=== PATIENT | female | born 2000 | race Caucasian/White ===

== ENCOUNTER 2024-11-02 18:04 | Emergency (ER) | payer MEDICAID, OTHER ==
[~2024-11-02] VITALS: Ht 177.8 cm; Wt 68.0 kg
[2024-11-02] MEDS ORDERED: PROCHLORPERAZINE EDISYLATE 10 MG/2 ML VIAL ONE (20:10)
[2024-11-02] MEDS ORDERED: ACETAMINOPHEN ES 500 MG TABLET ONE (20:10)
[2024-11-02] MEDS ORDERED: diphenhydrAMINE HCL 50 MG/ML VIAL ONE (20:10)
[2024-11-02] MEDS: IV NS 0.9% 1,000 ML BAG IV ONE (20:20)
[2024-11-02] MEDS: diphenhydrAMINE HCL 50 MG/ML VIAL IV ONE (20:21)
[2024-11-02] MEDS: ACETAMINOPHEN ES 500 MG TABLET PO ONE (20:21)
[2024-11-02] MEDS: PROCHLORPERAZINE EDISYLATE 10 MG/2 ML VIAL IM/IV ONE (20:23)
[2024-11-02] MEDS ORDERED: PSEU60TA98 PO (20:54)
[2024-11-02] MEDS ORDERED: KETOROLAC TROMETHAMINE INJ 30 MG/ML VIAL ONE (21:54)
[2024-11-02] MEDS: KETOROLAC TROMETHAMINE INJ 30 MG/ML VIAL IM ONE (21:59)
[2024-11-02 22:06] VITALS: BP 110/65; TEMP 98.3; O2SAT 99
== END 2024-11-02 22:06 | disposition home or self-care (01) ==
LOC: ER 18:10
DX: R51.9 Headache, unspecified (principal); R09.81 Nasal congestion; R50.9 Fever, unspecified
CPT/HCPCS: 99284; 96374; 96361; 96375; 96372; J1885; J0780; J1200